=== PATIENT | male | born 1995 | race Caucasian/White ===

== ENCOUNTER 2017-08-16 18:45 | Emergency (ER) | payer OTHER ==
[~2017-08-16] VITALS: Ht 170.2 cm; Wt 97.5 kg
--- NOTE | 2017-08-16 18:50 | NUR ---
[id number]: OK TO BOOK. TASER AT THE BACK. VSS
[2017-08-16 19:08] VITALS: BP 124/80
--- NOTE | 2017-08-16 19:08 | NUR ---
Patient discharged to home in stable condition. Written and verbal after care instructions given. Patient verbalizes understanding of instruction.
[2017-08-16] MEDS ORDERED: LORAZEPAM INJ 2 MG/ML VIAL ONE ×2 (19:28→19:37)
[2017-08-16] MEDS ORDERED: diphenhydrAMINE HCL 50 MG/ML VIAL ONE (19:29)
[2017-08-16] MEDS ORDERED: HALOPERIDOL LACTATE INJ 5 MG/ML VIAL ONE (19:29)
[2017-08-16] MEDS ORDERED: LORAZEPAM INJ 2 MG/ML VIAL IVP ONE (19:30)
[2017-08-16] MEDS ORDERED: LORAZEPAM INJ 2 MG/ML VIAL IM ONE (19:30)
[2017-08-16] MEDS ORDERED: HALOPERIDOL LACTATE INJ 5 MG/ML VIAL IM ONE (19:30)
[2017-08-16] MEDS ORDERED: diphenhydrAMINE HCL 50 MG/ML VIAL IM ONE (19:30)
--- NOTE | 2017-08-16 19:41 | NUR ---
PATIENT THREATENING POLICE THAT HE WILL FIGHT IF THEY TAKE HIM TO PEN[facility]IARY. DR FRANKLIN NOTIFIED AND MEDICATED PATIENT ORDERED.
== END 2017-08-16 19:13 ==
LOC: ER 18:48
DX: S31.030A Puncture wound without foreign body of lower back and pelvis without penetration into retroperitoneum, initial encounter (principal); F19.10 Other psychoactive substance abuse, uncomplicated; Y35.891A Legal intervention involving other specified means, law enforcement official injured, initial encounter; Y93.89 Activity, other specified; Y92.89 Other specified places as the place of occurrence of the external cause; Y99.8 Other external cause status
CPT/HCPCS: A4606; J1200; J1630; J2060; Z7610